=== PATIENT | male | born 1960 | race Caucasian/White ===

== ENCOUNTER 2018-12-18 04:10 | Inpatient (IN) | payer SELFPAY ==
[~2018-12-18] VITALS: Ht 167.6 cm; Wt 96.2 kg
[2018-12-18] MEDS ORDERED: LORAZEPAM 2MG/ML CPJ ONE (07:06)
[2018-12-18] MEDS ORDERED: LEVETIRACETAM 500MG PREMIX 100 ML IV ONE (07:15)
[2018-12-18] MEDS ORDERED: LORAZEPAM 2MG/ML CPJ IV ONE (07:15)
[2018-12-18 07:39] LABS: BASOPHILS % 0.4 % (0.0-2.0); EOSINOPHILS % 0.2 % (0.0-5.0); HEMATOCRIT. 44.6 % (42.0-52.0); LYMPHOCYTES % 11.9 % (20.0-50.0); MEAN CORPUSCULAR HEMOGLOBIN 31.2 pg (28.0-32.0); MEAN CORPUSCULAR VOLUME 92.9 fL (80.0-94.0); MONOCYTES % 3.7 % (2.0-8.0); NEUTROPHILS % 83.8 % (40.0-76.0); PLATELET 159 x1000/uL (130-400)
[2018-12-18 07:45] LABS: CHLORIDE 105 mEq/L (98-107)
[2018-12-18 07:50] LABS: ETHANOL BLOOD < 10 mg/dL
[2018-12-18 08:55] LABS: CLARITY URINE CLEAR (CLEAR); COLOR URINE YELLOW (YELLOW); KETONES URINE NEGATIVE (NEGATIVE); LEUKOCYTE ESTERASE URINE NEGATIVE (NEGATIVE); NITRITE URINE NEGATIVE (NEGATIVE); OCCULT BLOOD URINE NEGATIVE (NEGATIVE); PROTEIN URINE NEGATIVE (NEGATIVE); SPECIFIC GRAVITY URINE 1.015 (1.005-1.030); UROBILINOGEN URINE 0.2 E.U./dL (0.2-1.0)
[2018-12-18 10:01] LABS: *AMPHETAMINES SCREEN URINE NEGATIVE (NEGATIVE); *BARBITURATES SCREEN URINE NEGATIVE (NEGATIVE)
[2018-12-18 10:02] LABS: *BENZODIAZEPINES SCREEN URINE NEGATIVE (NEGATIVE); *COCAINE SCREEN URINE NEGATIVE (NEGATIVE); METHADONE URINE SCREEN NEGATIVE (NEGATIVE); OPIATES URINE SCREEN NEGATIVE (NEGATIVE); PHENCYCLIDINE URINE SCREEN NEGATIVE (NEGATIVE)
[2018-12-18 10:03] LABS: CANNABINOID URINE SCREEN NEGATIVE (NEGATIVE)
[2018-12-18 12:00] VITALS: BP 148/78
[2018-12-18] MEDS ORDERED: CLONIDINE 0.1MG TABLET PO PRN (12:15)
[2018-12-18] MEDS ORDERED: ONDANSETRON HCL 4MG/2ML INJ IV PRN (12:15)
[2018-12-18] MEDS ORDERED: ACETAMINOPHEN 325MG TABLET PO PRN (12:15)
[2018-12-18] MEDS ORDERED: LORAZEPAM 2MG/ML CPJ IV PRN (12:15)
[2018-12-18 12:30] VITALS: BP 148/78
[2018-12-18 16:00] VITALS: BP 111/68
[2018-12-18 20:24] VITALS: BP 134/78
[2018-12-18] MEDS: LEVETIRACETAM 500MG TABLET PO SCH (21:56)
[2018-12-19 00:44] VITALS: BP 117/70
[2018-12-19 04:44] VITALS: BP 122/70
[2018-12-19 07:13] LABS: BASOPHILS % 0.5 % (0.0-2.0); EOSINOPHILS % 2.2 % (0.0-5.0); HEMATOCRIT. 41.9 % (42.0-52.0); HEMOGLOBIN. 14.1 g/dL (14.0-18.0); MEAN CORPUSCULAR HEMOGLOBIN 31.1 pg (28.0-32.0); MONOCYTES % 7.8 % (2.0-8.0); NEUTROPHILS % 66.5 % (40.0-76.0); PLATELET 156 x1000/uL (130-400); RED BLOOD CELL COUNT 4.55 mill/uL (4.7-6.1); RED CELL DISTRIBUTION WIDTH 12.9 % (11.6-14.6)
[2018-12-19 07:24] LABS: CHLORIDE 105 mEq/L (98-107)
[2018-12-19 08:00] VITALS: BP 136/80
[2018-12-19] MEDS: LEVETIRACETAM 500MG TABLET PO SCH (08:20)
[2018-12-19 12:00] VITALS: BP 122/73
[2018-12-19 16:00] VITALS: BP 123/79
[2018-12-19] MEDS ORDERED: FOLIC ACID 1MG TABLET PO SCH (16:00)
[2018-12-19] MEDS ORDERED: THIAMINE HCL 100MG TABLET PO SCH (16:00)
[2018-12-19] MEDS ORDERED: MULTIVITAMINS,THER W-MINERALS TABLET PO SCH (16:00)
[2018-12-19 18:27] VITALS: BP 123/79
== END 2018-12-19 19:00 | disposition home or self-care (01) | DRG 53 ==
LOC: ER 04:10 → 6WST 09:34 → EDBEDREQ 09:35 → ENRESERV 11:01
PROVIDERS: ADMIT Internal Medicine; ATTEND Internal Medicine
DX: G40.909 Epilepsy, unspecified, not intractable, without status epilepticus (principal); E66.9 Obesity, unspecified; Z71.3 Dietary counseling and surveillance; Z68.34 Body mass index [BMI] 34.0-34.9, adult
CPT/HCPCS: 36415; 70551; 71045; 80048; 80305; 80320; 83036; 84484; 93005; 93970; 96365; 96375; 99285; J1953; J2060; G0480

== ENCOUNTER 2019-03-19 23:28 | Emergency (ER) | payer OTHER ==
[~2019-03-19] VITALS: Ht 172.7 cm; Wt 82.0 kg
[2019-03-19] MEDS ORDERED: SODIUM CHLORIDE 0.9% 1,000 ML IV ONE (23:55)
[2019-03-20] MEDS ORDERED: LEVETIRACETAM 500MG PREMIX 100 ML IV ONE
[2019-03-20 00:52] LABS: BASOPHILS % 0.5 % (0.0-2.0); EOSINOPHILS % 1.1 % (0.0-5.0); HEMATOCRIT. 41.2 % (42.0-52.0); HEMOGLOBIN. 14.1 g/dL (14.0-18.0); LYMPHOCYTES % 15.9 % (20.0-50.0); MEAN CORPUSCULAR HEMOGLOBIN 31.4 pg (28.0-32.0); MEAN CORPUSCULAR VOLUME 91.6 fL (80.0-94.0); MEAN PLATELET VOLUME 9.5 fl (7.4-10.4); MONOCYTES % 4.6 % (2.0-8.0); NEUTROPHILS % 77.9 % (40.0-76.0); PLATELET 166 x1000/uL (130-400); RED CELL DISTRIBUTION WIDTH 12.9 % (11.6-14.6)
[2019-03-20 00:55] LABS: CHLORIDE 107 mEq/L (98-107)
[2019-03-20 00:59] LABS: ETHANOL BLOOD < 10 mg/dL
[2019-03-20 01:15] LABS: CARBAMAZEPINE < 0.5 ug/mL (4-12); PHENOBARBITAL < 2.1 ug/mL (15.0-40.0); VALPROIC ACID < 3.0 ug/mL (50-100)
[2019-03-20] MEDS ORDERED: LORAZEPAM 2MG/ML CPJ IV ONE (01:30)
[2019-03-20] MEDS ORDERED: LORAZEPAM 2MG/ML CPJ ONE (01:30)
[2019-03-20 04:18] VITALS: BP 146/87
== END 2019-03-20 04:19 | disposition home or self-care (01) ==
LOC: ER 23:28
DX: G40.909 Epilepsy, unspecified, not intractable, without status epilepticus (principal); E86.0 Dehydration; R32 Unspecified urinary incontinence; R00.0 Tachycardia, unspecified; R03.0 Elevated blood-pressure reading, without diagnosis of hypertension; Z91.14 Patient's other noncompliance with medication regimen; S01.552A Open bite of oral cavity, initial encounter; W50.3XXA Accidental bite by another person, initial encounter; Y93.89 Activity, other specified; Y92.89 Other specified places as the place of occurrence of the external cause
CPT/HCPCS: 36415; 80053; 80156; 80165; 80184; 80185; 80320; 84443; 85025; 93005; 96374; 96375; 99284; J1953; J2060; J7030; G0480